=== PATIENT | female | born 1945 | race Caucasian/White ===

== ENCOUNTER 2024-11-21 09:19 | Outpatient (AMB) | payer MEDICARE, OTHER, SELFPAY ==
--- NOTE | 2024-11-21 09:19 | A.OFFPC_ITS ---
Vital Signs 11/21/24 09:24 Height 5 ft 6 in Weight 184 lb BMI 29.7 BP 142/78 H Blood Pressure Location Lt brachial Position Sitting Respiration 17 Pulse 73 Pulse Source Pulse Oximeter Temp 97.2 F Temp Source Temporal Artery Scan Pulse Oximetry (%) 94 Oxygen Delivery Method Room Air Intake Visit Reasons: Routine / Dr Cook Vulnerability Researcher Required: No Accompanied by: Spouse Allergies No Known Allergies Allergy (Verified 11/21/24 09:19) Tobacco use date assessed: 11/21/24 Fall risk assessment: No Falls in past year Last assessed Fall Risk: 11/21/24 HPI HPI Comments History of Present Illness Details The patient is a 79-year-old female presenting with memory concerns. She reports episodes of forgetting certain things and difficulty remembering recent occurrences, which seems to have been gradually progressing. She recalls a visit with a neurologist, who diagnosed her with short-term memory loss. Concerns about her memory were raised by her children, who noticed changes compared to previous years. The patient perceives this as a part of aging, although she remains capable of performing activities of daily living (ADLs) such as cooking, cleaning, and managing her finances independently. She engages in mental exercises like crossword puzzles and Sudoku to stay cognitively active. There was a suggestion of Donipizil (Aricept) as a potential treatment, although the neurologist will guide further management. Medical History: - Short-term Memory Loss - Essential Hypertension, managed with l isinopril 10 mg daily - Hypercholesterolemia, managed with sim vastatin 10 mg daily - Hypothyroidism, managed with levothyro xine 50 mcg daily - Hyperuricemia, managed with allopurino l 300 mg daily Surgical History: - No surgical history provided Medications: - Lisinopril 10 mg for hypertension - Simvastatin 10 mg for hypercholesterol emia - Levothyroxine 50 mcg for hypothyroidis m - Allopurinol 300 mg for elevated serum uric acid Family History: - Paternal history of cancer Social History: - Lives independently and manages her AD Ls, including cooking, cleaning, mowing the lawn, and managing finances - Drinks alcohol occasionally, about onc e a month - No history of tobacco use since her 20 s - No illicit drug use reported - Multicultural experience, originally f [facility] and educated in various locations around the [place] - Currently resides in [place] for family reasons and 's training [facility] Medical History (Updated 11/21/24 @ 10:05 by Quirino Banda MD) Memory loss Hypertension Hyperuricemia Hypothyroid Hyperlipidemia Hypertelorism Social History Housing: House Patient Tobacco Use Status: Former Tobacco user Tobacco use type: Cigarette e-Cigarette/Vaping Use: Never Used service: No Current occupational status: retired Questionnaire PHQ-9 Over the last 2 weeks, how often have you been bothered by any of the following problems? 1. Little interest or pleasure in doing things: not at all 2. Feeling down, depressed, or hopeless: not at all 3. Trouble falling or staying asleep, or sleeping too much: not at all 4. Feeling tired or having little energy: not at all 5. Poor appetite or overeating: not at all 6. Feeling bad about yourself - or that you are a failure or have let yourself or your family down: not at all 7. Trouble concentrating on things, such as reading the newspaper or watching television: not at all 8. Moving or speaking so slowly that other people could have noticed. Or the opposite - being so fidgety or restless that you have been moving around a lot more than usual: not at all 9. Thoughts that you would be better off or of hurting yourself in some wa y: not at all Total score: 0 Depression Screening Interpretation: Negative Depression Screening Done: Yes 62540 - PHQ-9 Billing: Yes Source: Developed by Drs. Ned Valencia, Gregoria Garrido, Homer Nolasco and colleagues, with an educational daysi from [employer]. Thrive Questionnaire Date Thrive assessed: 11/21/24 I am a: Patient What is your living situation today?: I have a steady place to live Within the past 12 months, did the food you bought not last and you didn't have the money to get more?: Never true Within the past 12 months, did you worry whether your food would run out before you got money to buy more?: Never true Do you have trouble paying for medicines?: No Do you have trouble getting transportation to medical appointments?: No Do you have trouble paying your heating and electricity bill?: No Do you have trouble taking care of your child, family member or friend?: No Do you have trouble with day-to-day activities such as bathing, preparing meals, shopping, managing finances, etc.?: No Are you currently unemployed and looking for a job?: No Are you interested in more education?: No THRIVE Score: 0 AUDIT C Alcohol Use Questionnaire (AUDIT-C) 1. How often do you have a drink containing alcohol?: Monthly or less 2. How many drinks containing alcohol do you have on a typical day when you are drinking?: 1 or 2 Total Score: 1 Score Reviewed/Action Taken: Yes YINKA-7 AMB Questionnaire YINKA-7 Date YINKA - 7 assessed: 11/21/24 Feeling nervous, anxious, or on edge: 0 = Not at all Not being able to stop or control worryin = Not at all Worrying too much about different things: 0 = Not at all Trouble relaxin = Not at all Being so restless that it is hard to sit still: 0 = Not at all Becoming easily annoyed or irritable: 0 = Not at all Feeling afraid as if something awful might happen: 0 = Not at all Total YINKA-7 score (0-4 normal; 5-9 mild; 10-14 moderate; 15-21 severe): 0 Source: Developed by Drs. Ned Valencia, Gregoria Garrido, Homer Nolasco and colleagues, with an educational daysi from [employer]. YINKA-7 Assessment Billing YINKA-7 Assessment Tool: YINKA-7 Assessment 76218 Review of Systems Const Details: - Cognitive: Reports short-term memory loss - Cardiovascular: Denies further symptoms, blood pressure noted as controlled - Musculoskeletal: Reports ability to perform physical and cognitive activities independently - Neurologic: Reports ability to engage in cognitive exercises such as Sudoku - Renal/Urologic: Reports medication usage for elevated uric acid All systems reviewed & are unremarkable except as noted in HPI and below Physical exam (Primary Care) Vital Signs: Last Vital Signs Temp 97.2 F 11/21/24 09:24 Pulse 73 11/21/24 09:24 Resp 17 11/21/24 09:24 BP 142/78 H 11/21/24 09:24 Pulse Ox 94 11/21/24 09:24 Oxygen Delivery Method Room Air 11/21/24 09:24 BMI result Body Mass Index 29.7 Tobacco/Smoking Status: Tobacco use Status Tobacco use date assessed 11/21/24 11/21/24 09:20 Patient Tobacco Use Status Former Tobacco user 11/21/24 09:27 Tobacco use type Cigarette 11/21/24 09:27 e-Cigarette/Vaping Use Never Used 11/21/24 09:20 Depression Screening Interpretation: Negative Const Other: General: +Alert and oriented, Well nourished, No acute distress. Eye: Pupils are equal, round and reactive to light, Intact accommodation, Extraocular movements are intact, Normal conjunctiva, Vision unchanged. HENT: Normocephalic, Atraumatic, Tympanic membranes are clear, Normal hearing, Oral mucosa is moist, No pharyngeal erythema, Ear canals patent. Respiratory: Lungs CTA bilaterally, No wheeze, Respirations are non-labored. Cardiovascular: Regular rate, Regular rhythm, S1 auscultated, S2 auscultated, No murmur, Good pulses equal in all extremities, Normal peripheral perfusion, Swelling in the right ankle, No edema in the left. Gastrointestinal: Soft, Non-tender, Non-distended, Normal bowel sounds, No organomegaly. Musculoskeletal: Normal range of motion, Normal strength, No tenderness, No swelling, No deformity, Normal gait. Integumentary: Warm, Dry, [place], Intact. Neurologic: Alert, Oriented, Normal sensory, Normal motor function, No focal defects, Cranial Nerves II-XII are grossly intact, Normal deep tendon reflexes. Psychiatric: Cooperative, Appropriate mood & affect, Normal judgment. Coding Level of Care Code New Pt Level 4 (35991) Complex EM visit Add On G2211 Diagnoses Hyperlipidemia, unspecified hyperlipidemia type E78.5 Hyperlipidemia type: unspecified Hypothyroidism, unspecified type E03.9 Hypothyroidism type: unspecified Hyperuricemia E79.0 Hypertension, unspecified type I10 Hypertension type: unspecified Memory loss R41.3 Additional Codes PHQ-9 - 75781 - PHQ-9 Billing: Yes ([id number]) YINKA-7 Assessment Billing - YINKA-7 Assessment Tool: YINKA-7 Assessment 18188 ([id number]) Assessment & Plan Assessment & Plan (1) Hyperlipidemia: Comment: - Continue simvastatin due to good cholesterol control. - Lipid panel to be checked to monitor statin efficacy. Code(s): E78.5 - Hyperlipidemia, unspecified Category: Medical Qualifiers: Hyperlipidemia type: unspecified Qualified Code(s): E78.5 - Hyperlipidemia, unspecified (2) Hypothyroid: Comment: - Continue levothyroxine for management. - Monitor thyroid function tests to adjust dose as needed. Code(s): E03.9 - Hypothyroidism, unspecified Category: Medical Qualifiers: Hypothyroidism type: unspecified Qualified Code(s): E03.9 - Hypothyroidism, unspecified (3) Hyperuricemia: Comment: - Continue allopurinol for uric acid management. - Serum uric acid level to be checked during lab work-up. Code(s): E79.0 - Hyperuricemia without signs of inflammatory arthritis and tophaceous disease Category: Medical (4) Hypertension: Comment: - Blood pressure is currently well-controlled at 130/80 with lisinopril. - Monitoring of BP is suggested via routine checks. Code(s): I10 - Essential (primary) hypertension Category: Medical Qualifiers: Hypertension type: unspecified Qualified Code(s): I10 - Essential (primary) hypertension (5) Memory loss: Comment: - Follow up with a neurologist to determine further management plans. - Discussed the potential use of Donipizil (Aricept), a cholinesterase inhibitor. Code(s): R41.3 - Other amnesia Category: Medical Plan I discussed with the patient her condition of short-term memory loss, which has been evaluated by a neurologist. It was noted that while this may be a part of the aging process, keeping active mentally is beneficial. We talked about using Donipizil (Aricept) as a treatment option; however, this would depend on the neurologist?s advice. For her existing chronic conditions, I instructed the continuation of current medications: lisinopril, simvastatin, and levothyroxine, while encouraging regular assessments to ensure effective control. We touched on family history of cancer and her excellent engagement in cognitive exercises, which are crucial in managing her memory issues. Lastly, recommended lab work was discussed to follow up on cholesterol and uric acid levels, with promised communication of results through the patient portal. 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 - Engage in mental activities such as reading, crossword puzzles, and Sudoku. - Elevate right ankle while sleeping to reduce swelling. - Attend follow-up with neurologist for memory concerns. - Complete recommended blood work, including lipid panel and uric acid levels. - Monitor blood pressure regularly. - Use the patient portal to check lab results and await further instructions regarding any abnormalities.
[2024-11-21 09:24] VITALS: BP 142/78; PULSE 73; RESP 17; TEMP 36.2; O2SAT 94; BMI 29.7
--- OUTSIDE RECORDS SUMMARY | 2024-11-21 10:00 | XMS_ITS | Patient Health Record ---
[facility] Address [address] [facility] [place] [address] Care Team Providers Care Cement Kiln Operator Name Role Phone Rene Cook MD Primary Care Provider Unavailab Karthikeyan Garcia Unavailable [phone] Reason For Referral No Information Medications Medication SIG (Take, Route, Frequency, Duration) Notes Start Date End Date Status Allopurinol 300 MG TAKE 1 TABLET BY SHAHID TH ONCE A DAY DIRECTED Oral; Duration: 30 Active CoQ10 Active Indomethacin ER 75 MG 1 CAPSULE WITH TARA D OR MILK ONCE A DAY ORALLY 30 DAY(S) Oral; Duration: 30 Not-Ta nadiya Mupirocin 2 % APPLY TO NOSTRIL TWI CE A DAY External; Duration: 30 Not-T aking oxyCODONE HCl 5 MG (Schedule II Drug) T LUPIS 1 TO 2 TABLETS BY MOUTH EVERY 4 HOURS NEEDED FOR POST-OP PAIN Oral; Duration: 7 Not-Taking Synthroid Active Klor-Con M20 20 MEQ TAKE 1 TABLET BY SHAHID TH EVERY DAY Oral; Duration: 30 Not-Taking Vitamin D Active Social History Tobacco Use: Social History Observation Description Date Details (start date - stop date) Former Smoker NA - NA Tobacco Use/Smoking Question Answer Notes Are you a: former smoker Additional Findings: Tobacco Non-User Current no n-smoker Alcohol Screen Question Answer Notes Did you have a drink contain ing alcohol in the past year? Yes How often did you have a dri nk containing alcohol in the past year? 2 to 4 times a month (2 points) Points 2 Interpretation Negative Tobacco use other than smoking: Question Answer Notes Are you an other tobacco user? 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) Active confirmed Problem Localized, primary osteoarthritis of the ankle and/or foot (736451551) Primary osteoarthritis , right ankle and foot (M19.071) Active confirmed Plan Of Treatment No Information Insurance Providers Payer Name Payer Address Payer Phone Subscriber Number Group Number Insured Name Patient Relationship to Insured Coverage Start Date Coverage End Date Medicare National Govt [employer] [address] [place] [address] [phone] [id number] Trinh Tan Self - patient is the insured for Life [address] [place] [address] [id number] Hal Tan Spouse - patient is the spouse of the insured Medical (General) History Medical History History ICD Code Arthritis hip pain Knee Pain Cholesterol Gall bladder problems Gout High blood pressure Chicken pox Measles Joint implants/screws Reflux Thyroid disorder Diabetic (controlled no meds) Surgical History Surgery Date(Month/Year) cholecystectomy 1998 right knee arthroscopy 2013 right knee replacement 2016 Hospitalization History Reason Date(Month/Year) Alexi Fuller Yarsani for right knee repla cement 07/20/15
== END 2024-11-21 10:49 | disposition home or self-care (01) ==
LOC: HO.HMCHD 09:20
PROVIDERS: PCP Family Medicine; Visit Provider Student in an Organized Health Care Education/Training Program
DX: E78.5 Hyperlipidemia, unspecified (principal); E03.9 Hypothyroidism, unspecified; E79.0 Hyperuricemia without signs of inflammatory arthritis and tophaceous disease; I10 Essential (primary) hypertension; R41.3 Other amnesia

== ENCOUNTER 2024-11-21 10:11 | Outpatient (REF) | payer MEDICARE, OTHER, SELFPAY ==
[2024-11-21 13:13] LABS: MANUAL DIFF FLAG NO
[2024-11-21 13:17] LABS: Hematocrit 44.0 % (37.0-47.0); Hemoglobin 14.8 g/dl (12.0-16.0); Imm Gran Abs Auto 0.02 X10*3/uL (0.00-0.03); Imm Gran Pct Auto 0.3 % (0.0-0.4); Lymphocytes Absolute Auto 2.6 X10*3/uL (1.2-4.9); Mean Corpuscular HGB Conc 33.6 g/dl (31.0-35.0); Mean Corpuscular Hemoglobin 31.0 pg (27.0-33.0); Mean Corpuscular Volume 92.1 fL (80.0-98.0); NRBC Abs Auto 0.000 X10*3/uL (0.0-0.012); NRBC Pct Auto 0.0 /100WBC (0.0-0.2); Platelet Count 248 X10*3/uL (160-400); Red Blood Count 4.78 X10*6/uL (4.20-5.50); White Blood Count 6.9 X10*3/uL (4.8-10.8)
[2024-11-21 13:22] LABS: Hemoglobin A1C 281.7188 umol/L; Total Hemoglobin (HGBA1C) 3821.9448 umol/L
[2024-11-21 13:36] LABS: Alanine Aminotransferase 60 U/L (0-31); Albumin Level 4.5 g/dL (3.5-5.0); Alkaline Phosphatase 100 U/L (39-117); Anion Gap 13 (12-20); Aspartate Amino Transferase 55 U/L (5-31); Blood Urea Nitrogen 23 mg/dL (9-16); Calcium 9.6 mg/dL (8.4-10.2); Carbon Dioxide 28 mmol/L (22-29); Chloride 105 mmol/L (96-108); Cholesterol 173 mg/dL (<200); Estimated Glomerular Filt Rate > 60; HDL Cholesterol 47 mg/dL (>40); Potassium 3.8 mmol/L (3.3-5.1); Sodium 142 mmol/L (135-145); Total Protein 7.2 g/dL (6.5-8.0); Triglycerides 140 mg/dL (<150); Uric Acid 3.9 mg/dL (2.4-5.7)
[2024-11-21 14:46] LABS: Free T4 (Free Thyroxine) 0.97 ng/dL (0.71-1.85)
== END 2024-11-21 10:12 | disposition home or self-care (01) ==
LOC: HO.10HDL 10:11
PROVIDERS: Visit Provider Student in an Organized Health Care Education/Training Program
DX: Q75.2 Hypertelorism (principal); E03.9 Hypothyroidism, unspecified; E79.0 Hyperuricemia without signs of inflammatory arthritis and tophaceous disease; E78.5 Hyperlipidemia, unspecified; I10 Essential (primary) hypertension; R41.3 Other amnesia; Z87.891 Personal history of nicotine dependence
CPT/HCPCS: 36415; 80053; 80061; 82306; 83036; 84439; 84443; 84550; 85025; 96127; 99202

== ENCOUNTER 2024-12-25 09:49 | Outpatient (REF) | payer MEDICARE, OTHER, SELFPAY ==
--- NOTE | ~2024-12-25 | XR_ITS ---
EXAMINATION: XR SHOULDER, RIGHT CLINICAL INFORMATION: M79.601 - Pain in right arm COMPARISON: None available. TECHNIQUE: AP external rotation, Grashey, scapular Y, and axillary views of the right shoulder. FINDINGS: A.C. and glenohumeral joints are intact. There are no degenerative changes. No fracture is identified. XR/XR shoulder RT min 2V IMPRESSION: Unremarkable right shoulder. Electronically signed by: Fercho Fuentes MD 12/25/2024 11:29 AM EDT
== END 2024-12-25 09:50 | disposition home or self-care (01) ==
LOC: HO.XRAY 09:49
PROVIDERS: PCP Student in an Organized Health Care Education/Training Program; Visit Provider Student in an Organized Health Care Education/Training Program
DX: M79.601 Pain in right arm (principal); I10 Essential (primary) hypertension; E78.5 Hyperlipidemia, unspecified; E03.9 Hypothyroidism, unspecified; E79.0 Hyperuricemia without signs of inflammatory arthritis and tophaceous disease; R41.3 Other amnesia
CPT/HCPCS: 73030; 99212

== ENCOUNTER 2024-12-25 09:49 | Outpatient (AMB) | payer MEDICARE, OTHER, SELFPAY ==
--- NOTE | 2024-12-25 08:44 | A.OFFPC_ITS ---
Vital Signs 12/25/24 10:00 Height 5 ft 6 in Weight 181 lb BMI 29.2 BP 128/66 Blood Pressure Location Lt brachial Position Sitting Respiration 18 Pulse 70 Pulse Source Pulse Oximeter Temp 97.6 F Temp Source Temporal Artery Scan Pulse Oximetry (%) 97 Oxygen Delivery Method Room Air Intake Visit Reasons: right upper arm pain. (see comments) Day Care Worker Required: No Accompanied by: Spouse Allergies No Known Allergies Allergy (Verified 12/25/24 08:45) Tobacco use date assessed: 12/25/24 Fall risk assessment: No Falls in past year Last assessed Fall Risk: 12/25/24 Dental Screening Dental Screen Date: 12/25/24 Did you have a dental visit in the last 12 months?: Yes Did you have a dental problem in the last 6 months where you did not have access to dental care?: No Was dental information given to patient?: Patient has dentist HPI HPI Comments History of Present Illness Details The patient is a 79-year-old female presenting with right shoulder pain. The onset of symptoms occurred approximately one month ago following the physical exertion of pulling large weeds in her yard and subsequently exacerbated by lifting heavy suitcases during a vacation. The pain has persisted despite the use of jqsw-vtz-mbnnilj analgesics, specifically Advil (ibuprofen) and occasional use of a lidocaine roll, which provides only fleeting relief. The pain is described as sometimes resembling a lightning bolt. The patient denies recent falls or direct trauma to the shoulder. She reports that the pain worsens with certain movements, particularly elevating the arm above the head. There is reported point tenderness at the front of the shoulder. Although she has stopped heavy yard work, the symptoms remain consistent, without significant improvement. Her medication regimen for shoulder pain has included alternating ibuprofen and Tylenol, with plans to explore physical therapy as needed if home exercises do not suffice. Medical History: - Gout, currently managed with allopurin ol - Hypothyroidism, treated with levothyro xine - Hypertension, controlled with lisinopr il - Short-term memory loss, under investig ation by neurology Medications: - Allopurinol 300 mg once daily for gout - Levothyroxine 75 mcg daily for hypothy roidism - Lisinopril 10 mg once daily for hypert ension - Meug-ajw-gsivezr ibuprofen and lidocai ne roll for shoulder pain Diagnostic Results: - Neurological testing pending for short -term memory loss Social History: - Engages in yard work, though currently ceased due to shoulder pain - Recent vacation involving lifting heav y [place] [facility] Medical History (Updated 12/25/24 @ 10:27 by Quirino Banda MD) Right arm pain Memory loss Hypertension Hyperuricemia Hypothyroid Hyperlipidemia Hypertelorism Social History Housing: House Patient Tobacco Use Status: Former Tobacco user Tobacco use type: Cigarette Years Smoked: 2 years e-Cigarette/Vaping Use: Never Used service: No Current occupational status: retired Questionnaire Thrive Questionnaire Date Thrive assessed: 11/21/24 AUDIT C Alcohol Use Questionnaire (AUDIT-C) 1. How often do you have a drink containing alcohol?: Monthly or less 2. How many drinks containing alcohol do you have on a typical day when you are drinking?: 1 or 2 Total Score: 1 YINKA-7 AMB Questionnaire YINKA-7 Date YINKA - 7 assessed: 11/21/24 Source: Developed by Drs. Ned Valencia, Gregoria Garrido, Homer Nolasco and colleagues, with an educational daysi from [employer]. Review of Systems Const Details: - Musculoskeletal: Reports right shoulder pain; denies falls or new trauma - Neurological: Reports short-term memory loss All systems reviewed & are unremarkable except as reviewed in HPI and above Physical exam (Primary Care) Vital Signs: Last Vital Signs Temp 97.6 F 12/25/24 10:00 Pulse 70 12/25/24 10:00 Resp 18 12/25/24 10:00 BP 128/66 12/25/24 10:00 Pulse Ox 97 12/25/24 10:00 Oxygen Delivery Method Room Air 12/25/24 10:00 BMI result Body Mass Index 29.2 Tobacco/Smoking Status: Tobacco use Status Tobacco use date assessed 12/25/24 12/25/24 10:03 Patient Tobacco Use Status Former Tobacco user 12/25/24 08:45 Tobacco use type Cigarette 12/25/24 08:45 e-Cigarette/Vaping Use Never Used 12/25/24 08:45 Thrive Assessment: Date of Thrive Assessment Date Thrive assessed 11/21/24 12/25/24 08:45 Const Other: General: Alert and oriented, Well nourished, No acute distress. Eye: Pupils are equal, round and reactive to light, Intact accommodation, Extraocular movements are intact, Normal conjunctiva, Vision unchanged. HENT: Normocephalic, Atraumatic, Tympanic membranes are clear, Normal hearing, Oral mucosa is moist, No pharyngeal erythema, Ear canals patent. Respiratory: Lungs CTA bilaterally, No wheeze, Respirations are non-labored. Cardiovascular: Regular rate, Regular rhythm, S1 auscultated, S2 auscultated, No murmur, Good pulses equal in all extremities, Normal peripheral perfusion, No e lyn. Gastrointestinal: Soft, Non-tender, Non-distended, Normal bowel sounds, No organomegaly. Musculoskeletal: Limited elevation of the right arm above the head with resistance, Point tenderness in the front of the shoulder, Possible rotator cuff involvement, Normal range of motion otherwise, Normal strength, No swelling, No deformity, Normal gait. Integumentary: Warm, Dry, Hilda, Intact. Neurologic: Alert, Oriented, Normal sensory, Normal motor function, No focal defects, Cranial Nerves II-XII are grossly intact, Normal deep tendon reflexes. Psychiatric: Cooperative, Appropriate mood & affect, Normal judgment. Coding Level of Care Code Est Pt Level 4 (77318) Complex EM visit Add On G2211 Diagnoses Right arm pain M79.601 Hypertension, unspecified type I10 Hypertension type: unspecified Hyperlipidemia, unspecified hyperlipidemia type E78.5 Hyperlipidemia type: unspecified Hypothyroidism, unspecified type E03.9 Hypothyroidism type: unspecified Hyperuricemia E79.0 Memory loss R41.3 Assessment & Plan Assessment & Plan (1) Right arm pain: Comment: - Assessment suggests likely muscle strain or potential rotator cuff pathology - Recommended alternating Tylenol and ibuprofen to manage pain. Use of Voltaren gel was suggested for topical pain relief. - Advised engaging in shoulder exercises, found online, for physical rehabilitation at home. - If pain does not improve, plan for follow-up e.g., physical therapy referral - X-ray requisition sent to evaluate for structural abnormalities Code(s): M79.601 - Pain in right arm Category: Medical (2) Hypertension: Comment: - Blood pressure is currently well-controlled at 130/80 with lisinopril. - Monitoring of BP is suggested via routine checks. Code(s): I10 - Essential (primary) hypertension Category: Medical Qualifiers: Hypertension type: unspecified Qualified Code(s): I10 - Essential (primary) hypertension (3) Hyperlipidemia: Comment: - Continue simvastatin due to good cholesterol control. Code(s): E78.5 - Hyperlipidemia, unspecified Category: Medical Qualifiers: Hyperlipidemia type: unspecified Qualified Code(s): E78.5 - Hyperlipidemia, unspecified (4) Hypothyroid: Comment: - Continue levothyroxine 75 mcg daily - Obtain thyroid level testing prior to the next visit Code(s): E03.9 - Hypothyroidism, unspecified Category: Medical Qualifiers: Hypothyroidism type: unspecified Qualified Code(s): E03.9 - Hypothyroidism, unspecified (5) Hyperuricemia: Comment: - Continue allopurinol for uric acid management. Code(s): E79.0 - Hyperuricemia without signs of inflammatory arthritis and tophaceous disease Category: Medical (6) Memory loss: Comment: - Pending follow-up with neurology on December 31 for test results Code(s): R41.3 - Other amnesia Category: Medical Plan: Health Maintenance: - Obtain thyroid function tests before next appointment Patient was informed and verbally consented to the use of an ambient scribe for clinic note documentation during this visit. Plan During the visit, I discussed the likely diagnosis of muscle strain in the right shoulder, with alternative possibilities including rotator cuff tear. I explained the management plan focusing on alternating Tylenol and ibuprofen for inflammation and pain, and the topical application of Voltaren gel. I educated the patient about engaging in shoulder exercises to improve mobility and reduce stiffness. We agreed on obtaining an x-ray to enhance diagnostic accuracy. Additionally, the ongoing plans include continued monitoring of her gout with allopurinol, managing hypothyroidism with levothyroxine, and ensuring excellent blood pressure control with lisinopril. Follow-up with the neurology department is scheduled to discuss pending results regarding memory issues. We planned for a follow-up in four months, reassessing if symptoms persist or change. Orders: Orders TSH reflex Free T4 4 Months E03.9 - Hypothyroidism, unspecified XR shoulder RT min 2V Today M79.601 - Pain in right arm Patient Instructions: - Take Tylenol and ibuprofen as discussed for shoulder pain relief - Apply Voltaren gel to the affected shoulder as needed - Perform shoulder exercises found online to maintain mobility - Attend scheduled x-ray for the right shoulder - Continue current medications for gout, hypothyroidism, and hypertension - Schedule follow-up neurologist visit on December 31 regarding memory testing - Return in four months for follow-up evaluation - Monitor symptoms and seek medical attention sooner if conditions worsen
[2024-12-25 10:00] VITALS: BP 128/66; PULSE 70; RESP 18; TEMP 36.4; O2SAT 97; BMI 29.2
== END 2024-12-25 10:33 | disposition home or self-care (01) ==
PROVIDERS: PCP Student in an Organized Health Care Education/Training Program; Visit Provider Student in an Organized Health Care Education/Training Program
DX: M79.601 Pain in right arm (principal); I10 Essential (primary) hypertension; E78.5 Hyperlipidemia, unspecified; E03.9 Hypothyroidism, unspecified; E79.0 Hyperuricemia without signs of inflammatory arthritis and tophaceous disease; R41.3 Other amnesia

== ENCOUNTER → 2024-12-25 10:46 | Outpatient (BNV) | payer MEDICARE, OTHER, SELFPAY | PROVIDERS: PCP Student in an Organized Health Care Education/Training Program; Visit Provider Radiology Diagnostic Radiology | DX: M25.511 Pain in right shoulder (principal) | CPT/HCPCS: 73030 ==

== ENCOUNTER 2025-01-06 08:27 | Outpatient (AMB) | payer MEDICARE, OTHER, SELFPAY ==
--- NOTE | 2025-01-06 08:03 | A.OFFPC_ITS ---
Vital Signs 01/06/25 08:04 Height 5 ft 6 in Weight 184 lb 8 oz BMI 29.8 BP 124/76 Blood Pressure Location Rt brachial Position Sitting Pulse 74 Pulse Source Pulse Oximeter Temp 98 F Temp Source Temporal Artery Scan Pulse Oximetry (%) 96 Oxygen Delivery Method Room Air Intake Visit Reasons: Short Term Memory Loss Package Sorter Required: No Accompanied by: Self / Same As Patient Allergies No Known Allergies Allergy (Verified 01/06/25 08:04) Tobacco use date assessed: 01/06/25 Fall risk assessment: No Falls in past year Last assessed Fall Risk: 01/06/25 Dental Screening Dental Screen Date: 01/06/25 Did you have a dental visit in the last 12 months?: Yes Did you have a dental problem in the last 6 months where you did not have access to dental care?: No HPI HPI Comments History of Present Illness Details The patient is a 79-year-old female presenting with concerns regarding diabetes management and short-term memory loss. Her diabetes mellitus has been previously discussed, and she is aware that her blood glucose levels are poorly controlled. Her most recent hemoglobin A1c is 8.3, indicating poor glycemic control. The conversation indicated that her glucose levels might have been consistently high. There have been discussions about starting metformin to help manage her sugar levels and diet modifications were advised in the past. The memory issues have prompted consultation with a neuropsychologist who recommended further assessment with an MRI. She has experienced memory changes, which are impacting her daily activities, specifically short-term memory. This issue is significant enough that she is advised to see a neurologist for further evaluation and potential treatment options, such as starting Donepezil She also discussed previous consultations regarding her cholesterol levels, hypertension managed on lisinopril, hypothyroidism on levothyroxine, and gout managed with allopurinol. Her current medications, including those for managing hyperlipidemia, hypertension, and gout, are consistent with maintaining her health. There is also mention of sleep habits where no serious issues such as snoring are reported, though sleep studies were discussed as unnecessary given her absence of snoring or sleep apnea symptoms. Medical History: - Diabetes Mellitus - Memory Changes - Hyperlipidemia - Hypertension - Gout - Hypothyroidism Medications: - Levothyroxine for Hypothyroidism - Allopurinol for Gout - Lisinopril 10 mg for Hypertension - Simvastatin 10 mg for Hyperlipidemia Diagnostic Results: - Labs: Hemoglobin A1c 8.3 - Tests and Diagnostics: Vitamin D level 46 Social History: - Reports active lifestyle; involves in cooking, cleaning, and yard work. - Denies any limitations in functional s tatus or daily living activities. [facility] Medical History (Updated 01/06/25 @ 09:23 by Quirino Banda MD) Diabetes Right arm pain Memory loss Hypertension Hyperuricemia Hypothyroid Hyperlipidemia Hypertelorism Family History (Updated 01/06/25 @ 08:46 by Kitty Hernadez MA) Mother No problems noted. Father No problems noted. Social History Housing: House Patient Tobacco Use Status: Former Tobacco user Tobacco use type: Cigarette Years Smoked: 2 years e-Cigarette/Vaping Use: Never Used service: No Current occupational status: retired Cognitive needs: No Hearing needs: No Vision needs: Yes (rx glasses) Questionnaire PHQ-9 Over the last 2 weeks, how often have you been bothered by any of the following problems? 1. Little interest or pleasure in doing things: not at all 2. Feeling down, depressed, or hopeless: not at all 3. Trouble falling or staying asleep, or sleeping too much: not at all 4. Feeling tired or having little energy: not at all 5. Poor appetite or overeating: not at all 6. Feeling bad about yourself - or that you are a failure or have let yourself or your family down: not at all 7. Trouble concentrating on things, such as reading the newspaper or watching television: not at all 8. Moving or speaking so slowly that other people could have noticed. Or the opposite - being so fidgety or restless that you have been moving around a lot more than usual: not at all 9. Thoughts that you would be better off or of hurting yourself in some way: not at all Total score: 0 Source: Developed by Drs. Ned Valencia, Gregoria Garrido, Homer Nolasco and colleagues, with an educational daysi from [employer]. Thrive Questionnaire Date Thrive assessed: 01/06/25 I am a: Patient Within the past 12 months, did the food you bought not last and you didn't have the money to get more?: Never true Within the past 12 months, did you worry whether your food would run out before you got money to buy more?: Never true Do you have trouble paying for medicines?: No Do you have trouble getting transportation to medical appointments?: No Do you have trouble paying your heating and electricity bill?: No Do you have trouble taking care of your child, family member or friend?: No Do you have trouble with day-to-day activities such as bathing, preparing meals, shopping, managing finances, etc.?: No Are you currently unemployed and looking for a job?: No Are you interested in more education?: No THRIVE Score: 0 AUDIT C Alcohol Use Questionnaire (AUDIT-C) 1. How often do you have a drink containing alcohol?: Monthly or less 2. How many drinks containing alcohol do you have on a typical day when you are drinking?: 1 or 2 3. How often do you have six or more drinks on one occasion?: Less than monthly Total Score: 2 YINKA-7 AMB Questionnaire YINKA-7 Date YINKA - 7 assessed: 01/06/25 Feeling nervous, anxious, or on edge: 0 = Not at all Not being able to stop or control worryin = Not at all Worrying too much about different things: 0 = Not at all Trouble relaxin = Not at all Being so restless that it is hard to sit still: 0 = Not at all Becoming easily annoyed or irritable: 0 = Not at all Feeling afraid as if something awful might happen: 0 = Not at all Total YINKA-7 score (0-4 normal; 5-9 mild; 10-14 moderate; 15-21 severe): 0 Source: Developed by Drs. Ned Valencia, Gregoria Garrido, Homer Nolasco and colleagues, with an educational daysi from [employer]. Review of Systems Const Details: - Neurological: Reports short-term memory loss. - Endocrine: No symptoms of hypo- or hyperthyroidism reported. - Symptoms related to sleep, such as snoring or apnea, were denied. All systems reviewed & are unremarkable except as reviewed in HPI and above Physical exam (Primary Care) Vital Signs: Last Vital Signs Temp 98 F 01/06/25 08:04 Pulse 74 01/06/25 08:04 BP 124/76 01/06/25 08:04 Pulse Ox 96 01/06/25 08:04 Oxygen Delivery Method Room Air 01/06/25 08:04 BMI result Body Mass Index 29.8 Tobacco/Smoking Status: Tobacco use Status Tobacco use date assessed 01/06/25 01/06/25 08:06 Patient Tobacco Use Status Former Tobacco user 01/06/25 08:06 Tobacco use type Cigarette 01/06/25 08:06 e-Cigarette/Vaping Use Never Used 01/06/25 08:06 PHQ-9: PHQ-9 Score PHQ-9: Total score 0 01/06/25 08:41 Thrive Assessment: Date of Thrive Assessment Date Thrive assessed 01/06/25 01/06/25 08:06 Const Other: General: Alert and oriented, Well nourished, No acute distress. Eye: Pupils are equal, round and reactive to light, Intact accommodation, Extraocular movements are intact, Normal conjunctiva, Vision unchanged. HENT: Normocephalic, Atraumatic, Tympanic membranes are clear, Normal hearing, Oral mucosa is moist, No pharyngeal erythema, Ear canals patent. Respiratory: Lungs CTA bilaterally, No wheeze, Respirations are non-labored. Cardiovascular: Regular rate, Regular rhythm, S1 auscultated, S2 auscultated, No murmur, Good pulses equal in all extremities, Normal peripheral perfusion, No edema. Gastrointestinal: Soft, Non-tender, Non-distended, Normal bowel sounds, No organomegaly. Musculoskeletal: Normal range of motion, Normal strength, No tenderness, No swelling, No deformity, Normal gait. Integumentary: Warm, Dry, Atlas, Intact. Neurologic: Alert, Oriented, Normal sensory, Normal motor function, No focal defects, Cranial Nerves II-XII are grossly intact, Normal deep tendon reflexes. Psychiatric: Cooperative, Appropriate mood & affect, Normal judgment. Coding Level of Care Code Est Pt Level 4 (43988) Complex EM visit Add On G2211 Diagnoses Memory loss R41.3 Hypothyroidism, unspecified type E03.9 Hypothyroidism type: unspecified Hypertension, unspecified type I10 Hypertension type: unspecified Hyperlipidemia, unspecified hyperlipidemia type E78.5 Hyperlipidemia type: unspecified Right arm pain M79.601 Hyperuricemia E79.0 Type 2 diabetes mellitus without complication, without long-term current use of insulin E11.9 Diabetes mellitus type: type 2 Diabetes mellitus correction insulin use: without manager long term care use Diabetes mellitus complication status: without complication Assessment & Plan Assessment & Plan (1) Memory loss: Comment: - Has been determined to have short-term memory loss after evaluation with neuropsychology - Per their recommendations an MRI of the brain is ordered to rule out any intracranial pathology. They have also advised starting patient on donepezil however we will have evaluation done by Neurology to determine if patient may benefit from any other new or medications before starting her on donepezil Code(s): R41.3 - Other amnesia Category: Medical (2) Hypothyroid: Comment: - Continue levothyroxine 75 mcg daily - Obtain thyroid level testing prior to the next visit Code(s): E03.9 - Hypothyroidism, unspecified Category: Medical Qualifiers: Hypothyroidism type: unspecified Qualified Code(s): E03.9 - Hypothyroidism, unspecified (3) Hypertension: Comment: - Blood pressure is currently well-controlled at 124/76 with lisinopril. - Monitoring of BP is suggested via routine checks. Code(s): I10 - Essential (primary) hypertension Category: Medical Qualifiers: Hypertension type: unspecified Qualified Code(s): I10 - Essential (primary) hypertension (4) Hyperlipidemia: Comment: - Continue simvastatin due to good cholesterol control. Code(s): E78.5 - Hyperlipidemia, unspecified Category: Medical Qualifiers: Hyperlipidemia type: unspecified Qualified Code(s): E78.5 - Hyperlipidemia, unspecified (5) Right arm pain: Comment: - XRay imaging unremarkable - Advised continuing Tylenol or ibuprofen in addition to Voltaren gel and physical therapy. Offered physical therapy clinic today however she declined and expressed that she would like to try home exercises before considering physical therapy. Code(s): M79.601 - Pain in right arm Category: Medical (6) Hyperuricemia: Comment: - Continue allopurinol for uric acid management. Code(s): E79.0 - Hyperuricemia without signs of inflammatory arthritis and tophaceous disease Category: Medical (7) Diabetes: Comment: - Initiate metformin at 500 mg twice daily due to continued hyperglycemia with HbA1c at 8.3. - Monitor glucose levels; consider transitioning future prescriptions to 90-day supplies via [facility]. Code(s): E11.9 - Type 2 diabetes mellitus without complications Category: Medical Qualifiers: Diabetes mellitus type: type 2 Diabetes mellitus manager long term care insulin use: without manager long term care use Diabetes mellitus complication status: without complica tion Qualified Code(s): E11.9 - Type 2 diabetes mellitus without complications Plan: Healthcare Maintenance: - Recommended active lifestyle and diet modifications for diabetes management. - Advised on not over-treating vitamin D as current level is adequate. Patient was informed and verbally consented to the use of an ambient scribe for clinic note documentation during this visit. Plan I discussed the patient's diabetes management, emphasizing the need for tighter glucose control given the A1c levels and starting metformin. The necessity of an MRI for memory assessment and referral to neurology for advanced management options, including medications, were explored. The patient currently manages her existing comorbidities effectively, and continuation of her current medication regimen for these conditions was agreed upon. We talked through the logistical aspects of pharmacy services to streamline prescription management. No new sleep studies were deemed necessary at this point. Follow-up steps include coordination for MRI and neurology appointments, with expected communication for scheduling. Orders: Orders MR brain wo con w neuroquant Today R41.3 - Other amnesia RT PSG in-lab sleep study Today R41.3 - Other amnesia Hemoglobin A1c Today E03.9 - Hypothyroidism, unspecified, E11.9 - Type 2 diabetes mellitus without complications TSH reflex Free T4 Today E03.9 - Hypothyroidism, unspecified, E11.9 - Type 2 diabetes mellitus without complications Referrals Neurology Referral R41.3 - Other amnesia Medications: New metformin 500 mg PO BID 90 tabs 0RF metformin 500 mg PO BID 60 tabs 0RF Patient Instructions: - Start taking metformin 500 mg twice daily. - Follow up for MRI scheduling and neurology appointment. - Maintain current activity levels and dietary management. - Continue all other medications as prescribed. - Report any new symptoms or concerns.
[2025-01-06 08:04] VITALS: BP 124/76; PULSE 74; TEMP 36.6; O2SAT 96; BMI 29.8
== END 2025-01-06 09:01 | disposition home or self-care (01) ==
LOC: HO.HMCHD 08:28
PROVIDERS: PCP Student in an Organized Health Care Education/Training Program; Visit Provider Student in an Organized Health Care Education/Training Program
DX: R41.3 Other amnesia (principal); E03.9 Hypothyroidism, unspecified; I10 Essential (primary) hypertension; E78.5 Hyperlipidemia, unspecified; M79.601 Pain in right arm; E79.0 Hyperuricemia without signs of inflammatory arthritis and tophaceous disease; E11.9 Type 2 diabetes mellitus without complications

== ENCOUNTER → 2025-01-06 08:27 | Outpatient (BNVA) | payer MEDICARE, OTHER, SELFPAY | PROVIDERS: PCP Student in an Organized Health Care Education/Training Program; Visit Provider Student in an Organized Health Care Education/Training Program | DX: R41.3 Other amnesia (principal); E03.9 Hypothyroidism, unspecified; I10 Essential (primary) hypertension; E78.5 Hyperlipidemia, unspecified; M79.601 Pain in right arm; E79.0 Hyperuricemia without signs of inflammatory arthritis and tophaceous disease; E11.9 Type 2 diabetes mellitus without complications; Z79.899 Other long term (current) drug therapy; Z13.30 Encounter for screening examination for mental health and behavioral disorders, unspecified; Z13.39 Encounter for screening examination for other mental health and behavioral disorders | CPT/HCPCS: 96127; 99212 ==

== ENCOUNTER 2025-03-16 10:53 | Outpatient (REF) | payer MEDICARE, OTHER, SELFPAY ==
--- NOTE | ~2025-03-16 | MR_ITS ---
MR BRAIN WITHOUT CONTRAST, WITH NEUROQUANTITATIVE EVALUATION HISTORY: Memory loss x1 year. 89-year-old female. COMPARISON: None. TECHNIQUE: Multiplanar, multisequence MR imaging of the brain was performed without IV contrast. Standard sequences were utilized. In addition, neuroquantitative evaluation was performed and a separate 3-D workstation. FINDINGS: There is no diffusion restriction. There is no intracranial hemorrhage, acute infarction, mass effect, or edema. Ventricles, sulci, and cisterns are mildly diffusely prominent, in keeping with mildly age advanced cerebral and cerebellar volume loss. No shift of midline. No abnormal hemosiderin deposition is identified. There are scattered punctate and minimally confluent foci of white matter T2 hyperintensity in the periventricular, subcortical, and hemispheric deep white matter. These foci are nonspecific but statistically relate to small vessel ischemic changes. There are tiny old lacunar type infarcts in the anterior gangliocapsular regions. Midline structures appear normally formed. The pituitary gland appears normal. Posterior fossa structures appear normal. Cerebellar tonsils are appropriately located. Major flow voids are preserved within the skull base. NEUROQUANTITATIVE EVALUATION: (Please refer to the report attached to the examination on PACS): Hippocampal occupancy score = 0.66, which is 25% compared with the age-matched normative percentile. Hippocampal volume is estimated at 9% compared with age-matched normative percentiles. Enterorhinal cortex volume is estimated at 39% compared with age-matched normative percentiles. Temporal cortex volume is estimated at 86% compared with age-matched normative percentiles. Parietal cortex volume is estimated at 81% compared with age-matched normative percentiles. Frontal cortex volume is estimated at 24% compared with age-matched normative percentiles. Occipital cortex volume is estimated at 87% compared with age-matched normative percentiles. Whole brain volume is estimated at 85% compared with age-matched normative percentiles. The globes and orbital contents demonstrate bilateral lens replacements. They are otherwise normal. Paranasal sinuses are clear bilaterally. The mastoids and tympanic cavities are normally aerated. Extracranial soft tissues demonstrate no abnormalities. No suspicious bone marrow changes are evident. 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 Mild to moderate degenerative changes are noted in both TM joints. MR/MR brain wo con w neuroquant IMPRESSION: 1. No evidence of intracranial hemorrhage, acute infarction, mass effect, or edema. 2. Mildly age advanced cerebral and cerebellar volume loss, and mild to moderate changes of small vessel ischemia. 3. Please refer to the neuroquantitative values and attached report for more detailed brain volume evaluation. Electronically signed by: Jonnathan Jones MD 03/17/2025 09:50 AM LORI PERAZA
--- OUTSIDE RECORDS SUMMARY | 2025-03-16 10:55 | XMS_ITS | Patient Health Record ---
Author Organization [facility] Address [address] 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) Active confirmed Problem Localized, primary osteoarthritis of the ankle and/or foot (650292490) Primary osteoarthritis , right ankle and foot (M19.071) Active confirmed Plan Of Treatment No Information Insurance Providers Payer Name Payer Address Payer Phone Subscriber Number Group Number Insured Name Patient Relationship to Insured Coverage Start Date Coverage End Date Medicare National Govt [employer] [address] [place] [address] [id number] Trinh Tan Self - patient is the insured for Life [address] [place] [address] [id number] Hal Tan Spouse - patient is the [...] 2016 Hospitalization History Reason Date(Month/Year) Alexi Fuller Religious for right knee repla cement 07/20/15
--- OUTSIDE RECORDS SUMMARY | 2025-03-16 10:55 | XMS_ITS | Data Portability ---
Author Organization [place] - [facility], Allergy Address [address] [address] Assessment Encounter Date Assessment Date Assessment LastModified by Organization Details LastModified Time 11/17/2023 11/17/2023 Audiometric testing demonstrates bilateral neurosensory hearing loss without significant asymmetry. Speech recognition is good and amplification is not currently indicated. Recommend repeat audiometric testing in 1-2 years or with perceived change. Good listening strategies were reviewed to include being [id number] with conversation partner in a small room without background noise. [email or web address] Not available 11/17/2023 13:45:41 Plan of Treatment Reminders Order Date Submit Date Provider Last Modified By Organization Details Last Modified Time Details Appointments None record ed. Lab None record ed. Referral None record ed. Procedures None record ed. Surgeries None record ed. Imaging None record ed. Medication Orders None record ed. Patient TargetsNo targets recorded. Patient InstructionsNo instructions recorded. Reason for Referral None Reported. Results Created Date Observation Date Name Description Value Unit Range Abnormal Flag Note LastModifiedBy Organization Detail LastModifiedTime 11/21/19 24 audio gram No observ ation record ed. BARCODE Not Available 2023 08:48:04 Result Notes None recorded. Problems Name Problem SNOMED Code Status Onset Date Resolution Date Notes Provider Name and Address Organization Details Recorded Time Sensorine ural hearing loss of bilateral ears 025744289 Active 2014 Sensorineu ral hearing loss, bilateral; Note: Date Diagnosed: 01/07/2015 2:08 PM (H90.3) Not Available [employer] 03:31:07 Problem Notes None recorded. Procedures Surgical History Date Name Laterality Status Provider Name and Address Organization Details Recorded Time 11/17/2023 Comp Audio with Tymps - 61109 & 71733 completed Marga Mendes [place] - [facility] 11/17/2023 11:53:57 Imaging Results None recorded. Procedure Notes None recorded. Medical Equipment None Reported. Allergies No known drug allergies Medications Name Sig Start Date Stop Date Status Note LastModified by Organization Details LastModified Time simvastat in 10 mg tablet TAKE 1 TABLET BY MOUTH AT BEDTIME DIRECTED active Not Available Not Available No t Available amoxicill in 500 mg tablet TAKE 4 TABLETS BY MOUTH ONE HOUR BEFORE DENTAL APPOINTM ENT WITH NO SECOND DOSE. 11/16 completed Not Available Not Available Not Available levothyro xine 50 mcg tablet active Not Available Not Available Not Available lisinopri l 10 mg tablet active Not Available Not Available Not Available allopurin ol 300 mg tablet active Not Available Not Available Not Available Fluzone High-Dose (PF) 180 mcg/0.5 mL intramusc ular syringe 11/16 completed Medicati on ID: [id number] Du ration Value: 1 Brand Name: Fluzone High-Dos e (PF) Sen d Method: E-Prescr ibed Sub s Allowed: subs OK Speci al Instruct ion: TO BE ADMINIST ERED BY PHARMACI ST FOR IMMUNIZA TION Med icationG enericNa me: Fluzone High-Dos e (PF) Not Available Not Available Not Available Vitals Date Recorded Body height Body mass index (BMI) Body weight Provider Name and Address Organization Details Last Updated DateTime 11/17/2023 167.64 cm 29.9 kg/m2 68177.59 g Candy Neal MA - [facility] 11/17/2023 11:57:20 Social History None recorded. Functional Status None recorded. Mental Status None recorded. Family History Nothing Reported. Medical History No medical history recorded. Gynecological HistoryNo gynecological history recorded. Obstetrics History GPAL:G 0 P 0 0 0 0 Past Encounters Encounter ID Performer Location Encounter Start Date Encounter Closed Date Diagnosis/Indication Diagnosis SNOMED-CT Code Diagnosis ICD10 Code Diagnosis IMO Codes Diagnosis Note [id number] GABRIEL WEBBER PA-C [facility] [address] [place] [address] 11/17/2023 10:56:21 11/17/2023 12:09:46 Sensorineural hearing loss of bilateral ears 489704959 H90.3 [id number] TITA AZUL [facility] [address] [place] [address] 11/17/2023 11:53:31 11/17/2023 13:38:21 Sensorineural hearing loss of bilateral ears [id number] H90.3 Audiologic al evaluation results: Right ear: Normal sloping to moderately severe sensorineu ral hearing loss with excellent word recognitio n. Left ear: Normal sloping to moderately severe sensorineu ral hearing loss with excellent word recognitio n. Tympanomet ry: Right Ear:Type A Left Ear:Type A Health Concerns Section Related Observation LastModified by Organization Detai ls LastModified Time None Recorded Concern Status LastModified by Organization Details LastModified Time None Recorded Advance Directives Directive None Recorded Payers Insurance Date Sequence Insurance Name Policy Number Policy Mcguire Covered Member ID Mcguire Member ID Guarantor Name 04/16/2024 1 [place]: [employer] Trinh Tan [id number] Trinh Tan 09/06/2023 2 FOR LIFE () Trinh Tan [id number] Trinh Tan 04/18/2024 2 FOR LIFE ( - MEDICARE SUPPLEMENT) Trinh Tan [id number] Trinh Tan 04/18/2024 2 FOR LIFE ( - MEDICARE SUPPLEMENT) Trinh Tan [id number] Trinh Tan Notes Date Note Type Note Provider Name and Address Organization Details Recorded Time 11/17/2023 text/html ROS as noted in the HPI 78-year-old female presents after a 6-year hiatus from the practice for evaluation of ears and hearing. She feels that her hearing has slowly declined in the interim. She has difficulty hearing her unless he is facing her. She denies otalgia and otorrhea. She has no history of otologic surgeries and no history of significant noise exposure. Gabriel chavis MA - [facility] 11/17/2023 13:45:56 OBGyn Episode No OBEpisode recorded.
--- OUTSIDE RECORDS SUMMARY | 2025-03-16 10:55 | XMS_ITS | Clinical Summary ---
Author Organization Lauryn Rao [facility] Address [address] [place], [place] [id number] Care Team Providers Care Refractory Worker Name Role Phone Unavailable Primary Care Provider Unavailabl e Social History Tobacco Use Types Packs/Day Years Used Date Smoking Tobacco: Never Assessed Comments Unknown Sex and Gender Information Value Date Recorded Sex Assigned at Not on file Legal Sex Female 11:50 PM EST Gender Identity Not on file Sexual Orientation Not on file Plan of Treatment Not on file
--- OUTSIDE RECORDS SUMMARY | 2025-03-16 10:55 | XMS_ITS | Clinical Summary ---
Author Organization [facility] Address [address] [place] [address] Phone Care Team Providers Care Satellite Project Site Monitor Name Role Phone Quirino Banda MD Primary Care Provider [phone] Encounters Date Type Department Care Team Description 02/04/2025 Transcribe Orders [facility] - Virtual Department [address] [place] [id number] Quirino Banda MD from Last 3 Months Social History Tobacco Use Types Packs/Day Years Used Date Smoking Tobacco: Never Assessed Education Answer Date Recorded Are you interested in more education? Not on jules e 02/04/2025 Are you concerned about learning? Not on file 02/04/2025 No 02/04/2025 No 02/04/2025 Digital Access Answer Date Recorded No 02/04/2025 No 02/04/2025 Reliable internet access at home? Not on file 02/04/2025 Device with a working camera? Not on file Comments Unknown Sex and Gender Information Value Date Recorded Sex Assigned at Female 02/04/2025 9:42 AM EST Legal Sex Female 9:34 AM EST Gender Identity Female 02/04/2025 9:42 AM EST Sexual Orientation Straight 02/04/2025 9: 42 AM EST Plan of Treatment Upcoming Encounters Date Type Department Care Team (Late st Contact Info) Description 09/04/2025 1:00 PM EDT Office Visit [facility] [address] [place] [address] Kelechi Mederos PA-C [address] [place] [id number] [email or web address] Health Maintenance Due Date Last Done Comments Adult Td,Tdap Booster 1946 LIPID PANEL 1946 DEPRESSION SCREENING 1958 SMOKING Hx and SMOKELESS TOB ACCO SCREENING 05/24/1959 HEPATITIS C SCREENING 1964 PNEUMOCOCCAL VACCINES (50+ y ears) (1 of 1 - PCV) 1996 ZOSTER VACCINES (1 of 2) 1996 OSTEOPOROSIS SCREENING INITI AL (ONE-TIME) 05/24/2011 RSV VACCINE (1 - 1-dose 75+ series) 2021 INFLUENZA VACCINE (#1) 2024 COVID-19 VACCINE (1 - 2024-2 6 season) 2024 HEPATITIS A VACCINES Aged Out No long er eligible based on patient's age to complete this topic HIB VACCINES Aged Out No longer eligi ble based on patient's age to complete this topic MENINGOCOCCAL VACCINES (ACWY) Aged Out No longer eligible based on patient's age to complete this topic MENINGOCOCCAL VACCINES (B) Aged Out N o longer eligible based on patient's age to complete this topic Medical Devices Not on file Insurance MEDICARE PART A & B [facility] [facility] MEDICARE SUPPLEMENT MEDICARE PART A & B [employer] MEDICARE SUPPLEMENT MEDICARE PART A & B [employer] MEDICARE SUPPLEMENT MEDICARE PART A & B FOR LIFE MEDICARE SUPPLEMENT MEDICARE PART A & B FOR LIFE MEDICARE SUPPLEMENT MEDICARE PART A & B FOR [employer] MEDICARE SUPPLEMENT Care Teams Satellite Project Site Monitor Relationship Specialty Start Date End Date Quirino Banda MD [address] [facility] [address] [place] [address] PCP - General Internal Medicine 02/04/25 Additional Source Comments The information contained in this document represents components of the legal health record. It is not the complete legal health record.[facility]
== END 2025-03-16 10:54 | disposition home or self-care (01) ==
LOC: HO.MRI 10:53
PROVIDERS: PCP Student in an Organized Health Care Education/Training Program; Visit Provider Student in an Organized Health Care Education/Training Program
DX: R41.3 Other amnesia (principal); F03.90 Unspecified dementia, unspecified severity, without behavioral disturbance, psychotic disturbance, mood disturbance, and anxiety
CPT/HCPCS: 70551; 76377

== ENCOUNTER → 2025-03-16 10:59 | Outpatient (BNV) | payer MEDICARE, OTHER, SELFPAY | PROVIDERS: PCP Student in an Organized Health Care Education/Training Program; Visit Provider Radiology Diagnostic Radiology | DX: I67.82 Cerebral ischemia (principal); G31.1 Senile degeneration of brain, not elsewhere classified; R41.3 Other amnesia | CPT/HCPCS: 70551 ==